=== PATIENT | female | born 1980 | race Caucasian/White ===

== ENCOUNTER 2020-08-02 13:05 | Outpatient (REF) | payer BC, SELFPAY ==
[2020-08-02 21:45] LABS: FREE T4 1.42 ng/dL (0.76-1.46)
[2020-08-05 12:06] LABS: SARS-CoV-2 RNA Not Detected (NotDetected)
[2020-08-05 12:07] LABS: SARS-CoV-2 RNA Source Nasopharynx
[2020-08-13 11:54] LABS: T3, Total 88 ng/dL (80-200)
== END 2020-08-02 13:25 ==
LOC: NCHCN 13:05
PROVIDERS: Visit Provider Physician Assistant
DX: E89.0 Postprocedural hypothyroidism (principal); Z20.828 Contact with and (suspected) exposure to other viral communicable diseases
CPT/HCPCS: U0003; 84439; 84443; 84480

== ENCOUNTER 2021-10-25 13:20 | Outpatient (REF) | payer BC, SELFPAY ==
[2021-10-25 20:28] LABS: TSH (W/Ref FT4) 0.05 uIU/mL (0.36-3.74)
[2021-10-25 20:53] LABS: FREE T4 1.36 ng/dL (0.76-1.46)
== END 2021-10-25 13:21 | disposition home or self-care (01) ==
LOC: NCHCN 13:20
PROVIDERS: Visit Provider Physician Assistant
DX: E89.0 Postprocedural hypothyroidism (principal)
CPT/HCPCS: 84439; 84443

== ENCOUNTER 2021-12-03 17:13 | Outpatient (REF) | payer BC, SELFPAY ==
[2021-12-03 19:59] LABS: TSH (W/Ref FT4) 0.34 uIU/mL (0.36-3.74)
[2021-12-04 18:31] LABS: FSH 22.5 mIU/mL (See Note)
== END 2021-12-03 17:14 | disposition home or self-care (01) ==
LOC: NCHCN 17:13
PROVIDERS: Visit Provider Physician Assistant
DX: E03.9 Hypothyroidism, unspecified (principal); N95.1 Menopausal and female climacteric states
CPT/HCPCS: 83001; 83002; 84439; 84443

== ENCOUNTER 2022-06-12 19:02 | Outpatient (REF) | payer OTHER, SELFPAY ==
[2022-06-12 19:03] LABS: ALT 46 U/L (14-59); AST 31 U/L (15-37); Albumin 3.6 g/dL (3.4-5.0); Alkaline Phosphatase 83 U/L (46-116); Anion Gap 7.8 mmol/L (3-11); BUN 13 mg/dL (7-18); Bilirubin, Total 0.4 mg/dL (0.2-1.0); CO2 26.2 mmol/L (21.0-32.0); CREATININE 0.9 mg/dL (0.55-1.02); Chloride 104 mmol/L (98-107); Estimated GFR 81.35 (mL/min/1.73m2); Glucose 89 mg/dL (74-106); Sodium 138 mmol/L (136-145); Total Protein 7.4 g/dL (6.4-8.2)
[2022-06-15 17:19] LABS: Anaplasma phagocytophilum Negative (Negative); B. miyamotoi PCR Negative (Negative); Babesia divergens/MO-1 Negative (Negative); Babesia duncani Negative (Negative); Babesia microti Negative (Negative); Ehrlichia chaffeensis Negative (Negative); Ehrlichia ewingii/canis Negative (Negative); Ehrlichia muris eauclairensis Negative (Negative)
[2022-06-16 09:54] LABS: Lyme Ab w Rflx to Lyme Confirm Negative (Negative)
== END 2022-06-12 19:03 | disposition home or self-care (01) ==
LOC: NCHCN 19:02
PROVIDERS: Visit Provider Physician Assistant
DX: M25.50 Pain in unspecified joint (principal); E89.0 Postprocedural hypothyroidism
CPT/HCPCS: 80053; 87798; 86618

== ENCOUNTER 2022-09-10 11:53 | Outpatient (REF) | payer OTHER, SELFPAY ==
[2022-09-10 20:40] LABS: TSH (W/Ref FT4) 1.71 uIU/mL (0.36-3.74)
== END 2022-09-10 11:54 | disposition home or self-care (01) ==
LOC: NCHCN 11:53
PROVIDERS: Visit Provider Physician Assistant
DX: E03.9 Hypothyroidism, unspecified (principal)
CPT/HCPCS: 84443

== ENCOUNTER 2023-03-10 11:54 | Outpatient (REF) | payer BC, SELFPAY ==
[2023-03-10 20:45] LABS: Anion Gap 12.5 mmol/L (3-11); BUN 13 mg/dL (7-18); CO2 24.5 mmol/L (21.0-32.0); CREATININE 1.2 mg/dL (0.55-1.02); Calcium 9.8 mg/dL (8.5-10.1); Chloride 106 mmol/L (98-107); Glucose 143 mg/dL (74-106); Potassium 3.6 mmol/L (3.5-5.1); Sodium 143 mmol/L (136-145); TSH (W/Ref FT4) 1.41 uIU/mL (0.36-3.74)
== END 2023-03-10 11:55 | disposition home or self-care (01) ==
LOC: NCHCN 11:54
PROVIDERS: PCP Physician Assistant; Visit Provider Physician Assistant
DX: E89.0 Postprocedural hypothyroidism (principal); E66.9 Obesity, unspecified
CPT/HCPCS: 80048; 84443

== ENCOUNTER 2023-09-10 08:25 | Outpatient (REF) | payer OTHER, SELFPAY ==
[2023-09-10 19:03] LABS: ALT 25 U/L (14-59); AST 16 U/L (15-37); Albumin 3.3 g/dL (3.4-5.0); Alkaline Phosphatase 70 U/L (46-116); Anion Gap 6.1 mmol/L (3-11); BUN 10 mg/dL (7-18); Bilirubin, Total 0.4 mg/dL (0.2-1.0); CO2 28.9 mmol/L (21.0-32.0); Calcium 9.1 mg/dL (8.5-10.1); Calculated LDL 133 mg/dL (<100); Chloride 109 mmol/L (98-107); Cholesterol 205 mg/dL (<200); Estimated GFR 71.24 (mL/min/1.73m2); Glucose 87 mg/dL (74-106); HDL Cholesterol 58 mg/dL (40-60); Potassium 3.6 mmol/L (3.5-5.1); Sodium 144 mmol/L (136-145); TSH 0.16 uIU/mL (0.36-3.74); Total Protein 6.5 g/dL (6.4-8.2); Triglyceride 70 mg/dL (<150)
== END 2023-09-10 08:26 | disposition home or self-care (01) ==
LOC: NCHCN 08:25
PROVIDERS: PCP Physician Assistant; Visit Provider Physician Assistant
DX: Z00.00 Encounter for general adult medical examination without abnormal findings (principal); E04.9 Nontoxic goiter, unspecified; Z13.220 Encounter for screening for lipoid disorders; Z13.1 Encounter for screening for diabetes mellitus
CPT/HCPCS: 80053; 80061; 83036; 84439; 84443

== ENCOUNTER 2023-12-03 16:11 | Outpatient (REF) | payer OTHER, SELFPAY ==
[2023-12-03 19:09] LABS: Abs Immature Grans 0.03 10^3/uL (0.0-0.06); Absolute Basophil Count 0.08 10^3/uL (0.0-0.2); Absolute Eosinophil Count 0.57 10^3/uL (0.0-0.7); Absolute Lymphocyte Count 1.94 10^3/uL (1.2-3.4); Absolute Monocyte Count 0.62 10^3/uL (0.1-0.8); Absolute Neutrophil Count 6.18 10^3/uL (1.2-6.7); Basophils % 0.8; Eosinophils % 6.1; HCT 46.3 % (36.0-46.0); HGB 15.2 g/dL (11.2-15.7); Immature Grans % 0.3; Lymphocytes % 20.6; MCH 30.2 pg (27.0-33.0); MCHC 32.8 % (32.0-36.0); MCV 92 fL (80-95); Monocytes % 6.6; Neutrophils % 65.6; RBC 5.03 10^6/uL (3.93-5.22); RDW-SD 40.6 fL; WBC 9.42 10^3/uL (4.4-10.8)
[2023-12-03 19:50] LABS: Diff Comment PLT Morph Reviewed; RBC Morphology Normal
== END 2023-12-03 16:12 | disposition home or self-care (01) ==
LOC: NCHCN 16:11
PROVIDERS: PCP Physician Assistant; Visit Provider Physician Assistant
DX: K76.0 Fatty (change of) liver, not elsewhere classified (principal)
CPT/HCPCS: 85025

== ENCOUNTER 2024-09-20 15:53 | Outpatient (REF) | payer BC, SELFPAY ==
[2024-09-20 19:26] LABS: Abs Immature Grans 0.04 10^3/uL (0.0-0.06); Absolute Basophil Count 0.09 10^3/uL (0.0-0.2); Absolute Eosinophil Count 0.74 10^3/uL (0.0-0.7); Absolute Lymphocyte Count 2.01 10^3/uL (1.2-3.4); Absolute Monocyte Count 0.44 10^3/uL (0.1-0.8); Absolute Neutrophil Count 5.16 10^3/uL (1.2-6.7); Basophils % 1.1 %; Eosinophils % 8.7 %; HCT 44.2 % (36.0-46.0); HGB 14.8 g/dL (11.2-15.7); Immature Grans % 0.5 %; Lymphocytes % 23.7 %; MCH 30.2 pg (27.0-33.0); MCHC 33.5 % (32.0-36.0); MCV 90 fL (80-95); MPV 11.7 fL (8.0-11.0); Monocytes % 5.2 %; Neutrophils % 60.8 %; Platelet Count 154 10^3/uL (130-400); RDW 11.9 % (11.7-14.6); RDW-SD 39.1 fL; WBC 8.48 10^3/uL (4.4-10.8)
[2024-09-20 19:42] LABS: ALT 24 U/L (14-59); AST 17 U/L (15-37); Albumin 3.6 g/dL (3.4-5.0); Alkaline Phosphatase 83 U/L (46-116); Anion Gap 5.1 mmol/L (3-11); BUN 12 mg/dL (7-18); Bilirubin, Total 0.34 mg/dL (0.2-1.0); CO2 28.9 mmol/L (21.0-32.0); Calcium 9.6 mg/dL (8.5-10.1); Chloride 107 mmol/L (98-107); Glucose 101 mg/dL (74-106); Potassium 3.6 mmol/L (3.5-5.1); Sodium 141 mmol/L (136-145); TSH (W/Ref FT4) 4.82 uIU/mL (0.36-3.74); Total Protein 6.9 g/dL (6.4-8.2)
[2024-09-20 20:05] LABS: FREE T4 0.99 ng/dL (0.76-1.46)
[2024-09-21 20:08] LABS: HIV-1/2 Ag & Ab Screen Negative (Negative)
[2024-09-21 20:11] LABS: Hepatitis C Ab w Rflx HCV PCR Negative (Negative)
== END 2024-09-20 15:54 | disposition home or self-care (01) ==
LOC: NCHCN 15:53
PROVIDERS: PCP Physician Assistant; Visit Provider Physician Assistant
DX: K76.0 Fatty (change of) liver, not elsewhere classified (principal)
CPT/HCPCS: 80053; 86803; 87389; 84439; 84443; 85025

== ENCOUNTER 2024-11-08 16:05 | Outpatient (REF) | payer BC, SELFPAY ==
[2024-11-08 19:08] LABS: TSH (W/Ref FT4) 0.08 uIU/mL (0.36-3.74)
[2024-11-08 19:27] LABS: FREE T4 1.37 ng/dL (0.76-1.46)
== END 2024-11-08 16:06 | disposition home or self-care (01) ==
LOC: NCHCN 16:05
PROVIDERS: PCP Physician Assistant; Visit Provider Physician Assistant
DX: E03.9 Hypothyroidism, unspecified (principal)
CPT/HCPCS: 84439; 84443

== ENCOUNTER 2025-01-03 11:29 | Outpatient (REF) | payer BC, SELFPAY ==
[2025-01-03 19:37] LABS: Calculated LDL 172 mg/dL (<100); Cholesterol 246 mg/dL (<200); HDL Cholesterol 57 mg/dL (>or=50); TSH (W/Ref FT4) 0.29 uIU/mL (0.36-3.74); Triglyceride 88 mg/dL (<150)
[2025-01-03 19:57] LABS: FREE T4 1.46 ng/dL (0.76-1.46)
== END 2025-01-03 11:30 | disposition home or self-care (01) ==
LOC: NCHCN 11:29
PROVIDERS: PCP Physician Assistant; Visit Provider Physician Assistant
DX: E78.5 Hyperlipidemia, unspecified (principal); E03.9 Hypothyroidism, unspecified
CPT/HCPCS: 80061; 84439; 84443

== ENCOUNTER 2025-02-24 11:44 | Outpatient (REF) | payer BC, SELFPAY ==
[2025-02-24 20:12] LABS: TSH (W/Ref FT4) 0.36 uIU/mL (0.36-3.74)
== END 2025-02-24 11:45 | disposition home or self-care (01) ==
LOC: NCHCN 11:44
PROVIDERS: PCP Physician Assistant; Visit Provider Physician Assistant
DX: E03.9 Hypothyroidism, unspecified (principal)
CPT/HCPCS: 84443

== ENCOUNTER 2025-04-18 15:27 | Outpatient (REF) | payer BC, SELFPAY ==
[2025-04-18 20:10] LABS: TSH (W/Ref FT4) 9.37 uIU/mL (0.36-3.74)
== END 2025-04-18 15:28 | disposition home or self-care (01) ==
LOC: NCHCN 15:27
PROVIDERS: PCP Physician Assistant; Visit Provider Physician Assistant
DX: E03.9 Hypothyroidism, unspecified (principal)
CPT/HCPCS: 84439; 84443

== ENCOUNTER 2025-05-22 16:26 | Outpatient (REF) | payer BC, SELFPAY ==
[2025-05-22 19:23] LABS: TSH (W/Ref FT4) 8.18 uIU/mL (0.36-3.74)
== END 2025-05-22 16:27 | disposition home or self-care (01) ==
LOC: NCHCN 16:26
PROVIDERS: PCP Physician Assistant; Visit Provider Physician Assistant
DX: E03.9 Hypothyroidism, unspecified (principal)
CPT/HCPCS: 84439; 84443

== ENCOUNTER 2025-08-28 12:39 | Outpatient (REF) | payer BC, SELFPAY ==
[2025-08-28 20:03] LABS: TSH (W/Ref FT4) 2.08 uIU/mL (0.55-4.78)
== END 2025-08-28 12:40 | disposition home or self-care (01) ==
LOC: NCHCN 12:39
PROVIDERS: PCP Physician Assistant; Visit Provider Physician Assistant
DX: E03.9 Hypothyroidism, unspecified (principal)
CPT/HCPCS: 84443